=== PATIENT | female | born 1970 | race Caucasian/White ===

== ENCOUNTER 2022-02-16 12:58 | Emergency (ER) | payer BC ==
[2022-02-16 13:36] LABS: HEMOGLOBIN 14.3 gm/dl (12.3-15.3); RED BLOOD COUNT 4.47 M/UL (4.00-5.10); WHITE BLOOD COUNT 10.4 K/UL (4.5-11.0)
[2022-02-16] MEDS ORDERED: ZOFRAN ODT 4 MG4 MG SL ×2 (17:20→17:26)
[2022-02-16] MEDS ORDERED: HYDROCODON-ACE1 EAC4 PO ×2 (17:20→17:26)
== END 2022-02-16 17:43 | disposition home or self-care (01) ==
LOC: ER1 12:58
PROVIDERS: Student in an Organized Health Care Education/Training Program
DX: K85.00 Idiopathic acute pancreatitis without necrosis or infection (principal); F17.210 Nicotine dependence, cigarettes, uncomplicated; I10 Essential (primary) hypertension
CPT/HCPCS: 80053; 81001; 83690; 85025; 96374; 99284; J2270